=== PATIENT | male | born 2000 | race African-American/Black ===

== ENCOUNTER 2023-01-28 13:21 | Emergency (ER) | payer MEDICAID ==
[2023-01-28] MEDS ORDERED: Ketorolac 60 MG/2 ML SDV IM ONE (13:37)
[2023-01-28] MEDS ORDERED: Cyclobenzaprine 10 MG Tab PO ONE (13:37)
== END 2023-01-28 13:57 | disposition home or self-care (01) ==
LOC: JD.ED 13:21
DX: M54.50 Low back pain, unspecified (principal); Z79.899 Other long term (current) drug therapy
CPT/HCPCS: 96372; 99283; A9270; J1885

== ENCOUNTER 2024-07-22 04:22 | Emergency (ER) | payer MEDICAID ==
[2024-07-22] MEDS: Diphtheria,Pertussis(Acell),Tetanus Vaccine 0.5 ML Syringe IM ONE (05:04)
== END 2024-07-22 05:07 | disposition home or self-care (01) ==
LOC: JD.ED 04:22
DX: S41.111A Laceration without foreign body of right upper arm, initial encounter (principal); Z23 Encounter for immunization; W00.0XXA Fall on same level due to ice and snow, initial encounter
CPT/HCPCS: 12002; 90471; 90715; 99282-25